=== PATIENT | male | born 1980 | race Caucasian/White ===

== ENCOUNTER 2017-03-30 14:53 | Emergency (ER) | payer OTHER ==
[2017-03-30 17:15] VITALS: BP 139/91
--- NOTE | 2017-03-30 17:28 | ED ---
Throat Pain/Nasal Congestion - HPI Summary HPI Summary: 37 yr old male with the complaint of runny nose, sore throat, cough, diffuse muscle aches, fatigue. Onset of symptoms yesterday. He has had a mild cough. He thinks he has influenza. he works in a skilled nursing as a conference planner. - History of Current Complaint Chief Complaint: UCGeneralIllness Time Seen by Provider: 03/30/17 17:13 - Allergies/Home Medications Allergies/Adverse Reactions: Allergies Allergy/AdvReac Type Severity Reaction Status Date / Time Cefaclor [[facility]] Allergy Anaphylatic Verified 03/30/17 17:15 Shock lactose intolerance AdvReac Diarrhea Uncoded 03/30/17 17:15 Home Medications: Home Medications Chlordiazepoxide HCl-Clidinium [Librax] 1 cap PO BID PRN 03/30/17 [History Confirmed 03/30/17] celeCOXIB CAP* [CeleBREX CAP*] 100 mg PO DAILY 03/30/17 [History Confirmed 03/30] PMH/Surg Hx/FS Hx/Imm Hx Cardiovascular History: Reports: Hx Hypertension - Surgical History Surgery Procedure, Year, and Place: tonsillectomy. ear tubes. deviated septum. vasectomy Infectious Disease History: No Infectious Disease History: Denies: Traveled Outside the [place] in Last 30 Days - Family History Known Family History: Positive: None - Social History Occupation: Employed Full-time Alcohol Use: Rare Substance Use Type: Reports: None Smoking Status (MU): Former Smoker Review of Systems Positive: Chills, Fatigue Positive: Sore Throat, Nasal Discharge Positive: Cough. Negative: Shortness Of Breath All Other Systems Reviewed And Are Negative: Yes Physical Exam Triage Information Reviewed: Yes Vital Signs On Initial Exam: Initial Vitals Temp Pulse Resp BP Pulse Ox 97.6 F 84 16 139/91 100 03/30/17 17:08 03/30/17 17:08 03/30/17 17:08 03/30/17 17:08 03/30/17 17:08 Vital Signs Reviewed: Yes Appearance: Positive: Well-Appearing, No Pain Distress Skin: Positive: Warm, Skin Color Reflects Adequate Perfusion Eyes: Positive: EOMI ENT: Positive: Normal ENT inspection, Pharynx normal, Nasal congestion, TMs normal Neck: Positive: Nontender Respiratory/Lung Sounds: Positive: Clear to Auscultation, Breath Sounds Present Cardiovascular: Positive: RRR. Negative: Murmur Abdomen Description: Positive: Nontender Musculoskeletal: Positive: Strength/ROM Intact Neurological: Positive: Sensory/Motor Intact, Alert, Oriented to Person Place, Time, CN Intact II-III Psychiatric: Positive: Normal - Shellie Coma Scale Best Eye Response: 4 - Spontaneous Best Motor Response: 6 - Obeys Commands Best Verbal Response: 5 - Oriented Diagnostics - Vital Signs Vital Signs Temp Pulse Resp BP Pulse Ox 03/30/17 17:08 97.6 F 84 16 139/91 100 - Laboratory Lab Statement: Any lab studies that have been ordered have been reviewed, and results considered in the medical decision making process. EENT Course/Dx - Course Course Of Treatment: 37 yr old male with URI symptoms. Neg Influenza. - Diagnoses Provider Diagnoses: Upper respiratory infection, Hypertension Discharge - Discharge Plan Condition: Good Disposition: HOME Patient Education Materials: Upper Respiratory Infection (ED), Hypertension (ED ) Forms: *Work Release Referrals: Rubi Lombardo MD [Primary Care Provider] - 2 Days
== END 2017-03-30 17:47 | disposition home or self-care (01) ==
LOC: UCCORT 14:53
DX: J06.9 Acute upper respiratory infection, unspecified (principal); I10 Essential (primary) hypertension; Z88.1 Allergy status to other antibiotic agents; Z87.891 Personal history of nicotine dependence
CPT/HCPCS: 87502; 99201; G0463